=== PATIENT | female | born 1990 | race Caucasian/White ===

== ENCOUNTER 2016-08-26 17:46 | Inpatient (IN) ==
[2016-08-26] MEDS ORDERED: MEPERIDINE 50 MG/1 ML VIAL IV PRN (19:19)
[2016-08-26] MEDS ORDERED: LACTATED RINGERS 500 ML IV PRN (19:19)
[2016-08-26] MEDS ORDERED: LACTATED RINGERS 250 ML IV ONE (19:19)
[2016-08-26] MEDS ORDERED: ONDANSETRON 4 MG/2 ML VIAL IV PRN (19:19)
[2016-08-26] MEDS ORDERED: BUTORPHANOL 2 MG/ML VIAL IV PRN (19:19)
[2016-08-26] MEDS ORDERED: FAMOTIDINE 20 MG/2 ML VIAL IV ONE (19:27)
[2016-08-26] MEDS ORDERED: fentaNYL 2 MCG/ROPIV 0.2% EPID 150 ML EPIDURAL SCH (19:27)
[2016-08-26] MEDS ORDERED: CITRIC ACID/SODIUM CITRATE 30 ML UDCUP PO ONE (19:27)
[2016-08-26] MEDS: LACTATED RINGERS 1,000 ML IV SCH ×3 (19:40→21:19)
[2016-08-26 19:45] LABS: Basophils % 0.1 % (0.0-0.8); Eosinophils # 0.1 10*3/uL (0.0-0.87); Eosinophils % 1.3 % (0.00-10.9); Hematocrit 32.3 VOL% (35.7-47.0); Hemoglobin 10.5 GM/DL (12.0-16.0); Immature Granulocytes % 0.6 %; Immature Granulocytes Absolute 0.05 #; Lymphocytes # 1.6 10*3/uL (1.4-4.0); Lymphocytes % 19.2 % (21.3-54.2); Mean Corpuscular HGB Conc 32.5 GM/DL (32-36); Mean Corpuscular Hemoglobin 27 PG (27-34); Mean Platelet Volume 12.5 FL (9.6-12.0); Monocytes # 0.5 10*3/uL (0.11-0.8); Monocytes % 6.4 % (1.7-12.7); Neutrophils # 6.1 10*3/uL (1.4-7.4); Neutrophils % 72.4 % (38.7-73.9); Platelet Count 210 T/CUMM (130-400); Red Blood Count 3.89 MC/CUMM (3.8-5.5); Red Cell Distribution Width 15.9 % (9.3-17.3); White Blood Count 8.4 T/CUMM (4-12)
[2016-08-26] MEDS ORDERED: ePHEDrine 50 MG/ML AMP ONE (19:47)
[2016-08-26 20:12] LABS: Alanine Aminotransferase 20 U/L (13-56); Albumin 2.4 G/DL (3.4-5.0); Alkaline Phosphatase 217 U/L (45-117); Aspartate Amino Transferase 21 U/L (0-37); Bilirubin,Total < 0.39 MG/DL (0.2-1.0); Blood Urea Nitrogen 9 MG/DL (7-18); Calcium 8.9 MG/DL (8.5-10.1); Glucose 83 MG/DL (74-106); Potassium 4.1 MMOL/L (3.5-5.1); Sodium 136 MMOL/L (136-145); Total Protein 6.2 G/DL (6.4-8.3)
[2016-08-26 20:15] LABS: Apearance,Urine CLEAR (Clear); Bilirubin,Urine Negative (Negative); Blood, Urine Negative (Negative); Glucose,Urine (UA) Negative (Negative); Ketones,Urine Negative (Negative); Nitrite,Urine Negative (Negative); Protein,Urine Negative; RBC,Urine <1 /HPF (0-4); Squamous Epithelial Cell,Urine Occasional /HPF (0-10); Urine Color Straw (Yellow); Urine Specific Gravity 1.005 (1.001-1.035); Urine Urobilinogen < 2.0 EU/DL (0.2-1.0); WBC,Urine <1 /HPF (0-6)
[2016-08-26 20:23] LABS: Barbiturates Screen,Urine Negative (Negative); Benzodiazepines Screen,Urine Negative (Negative); Cannabinoid Screen,Urine Negative (Negative); Opiate Screen,Urine Negative (Negative); Phencyclidine Screen,Urine Negative (Negative)
[2016-08-26] MEDS: AMPICILLIN INJ 2,000 MG in SODIUM CHLORIDE 0.9% 100 ML IV SCH (21:25)
[2016-08-26 21:57] LABS: Apearance,Urine CLEAR (Clear); Bilirubin,Urine Negative (Negative); Blood, Urine Negative (Negative); Glucose,Urine (UA) Negative (Negative); Ketones,Urine Negative (Negative); Nitrite,Urine Negative (Negative); Protein,Urine Negative; RBC,Urine 1 /HPF (0-4); Renal Epithelial Cells,Urine Occasional /HPF (<1); Squamous Epithelial Cell,Urine Occasional /HPF (0-10); Urine Color Colorless (Yellow); Urine Specific Gravity 1.003 (1.001-1.035); Urine Urobilinogen < 2.0 EU/DL (0.2-1.0); WBC,Urine <1 /HPF (0-6)
[2016-08-27] MEDS ORDERED: AMPICILLIN INJ 2,000 MG in SODIUM CHLORIDE 0.9% 100 ML IV SCH
[2016-08-27] MEDS ORDERED: diphenhydrAMINE 50 MG/1 ML VIAL IV ONE (02:55)
[2016-08-27] MEDS ORDERED: OXYTOCIN/LR 20 UNIT/1,000 ML BAG IV SCH (03:00)
[2016-08-27] MEDS: AMPICILLIN INJ 2,000 MG in SODIUM CHLORIDE 0.9% 100 ML IV SCH (03:15)
[2016-08-27 08:50] LABS: Cord Arterial Blood HCO3 20.3 MMOL/L
[2016-08-27 08:51] LABS: Cord Venous Blood HCO3 23.1 MMOL/L; Cord Venous Blood PO2 20.8 MMHG
--- NOTE | 2016-08-27 08:58 | OB/GYN History & Physical ---
History of Present Illness Chief complaint: In with complaints of active labor. History of present illness: Ms. Crystal is a 25 year old female who is a 4 para 3 living 3 PRABHA 2016 for an estimated gestational age of 37 weeks and 6 days. The patient presented to the labor department in active labor. The risk and benefits were thoroughly discussed with the patient and significant other, plan of care was discussed with Dr. Oleary and all parties were in agreement plan. The patient received her care at the [place] [facility] and she received routine care, her course was uneventful. She has had 3 previous vaginal deliveries the largest infant weighing 8 pounds and she reported no complications with any of her pregnancies. labs she is a positive, rubella is immune, RPR is nonreactive, hepatitis B negative, HIV negative, GBS culture positive. Review of systems is negative with exception of active labor. Home Medications Medication Instructions Recorded Confirmed Type No Known Home Medications [No 07/26/16 08/26/16 History Known Home Medications] Allergies Allergy/AdvReac Type Severity Reaction Status Date / Time No Known Allergies Allergy Verified 07/26/16 22:18 12 point system: reviewed and no additional remarkable complaints except as stated Medical,Surgical,& Family Hx - Medical History Medical History: noncontributory Reproductive: History of: Sexually Transmitted Disorders (positive chlamydia 12/26 treated) No history of: Ectopic , Complication - Surgical History Surgical History: noncontributory HEENT Surgeries: Surgical HX of: Tonsilectomy & Adenoidectomy (tonsilectomy) Reproductive Surgeries: Patient denies;: Section - Family History Family History: Reports;: Family Cancer (mother had lung cancer), Family Diabetes (father) - Social History Smoking Status: Current every day smoker Frequency of Alcohol Use: Unknown 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) Marital Status: Single Lives With:: Significant Other Functional capacity: uses cane/walker 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 - Constitutional Vitals: Vital Signs Temp Pulse Resp BP Pulse Ox 08/27/16 07:47 98.6 F 86 20 136/63 100 08/27/16 04:00 97.8 F 93 H 18 138/77 97 08/26/16 23:52 97.5 F L 103 H 19 126/72 99 General appearance: mild distress - Antepartum / Post Antepartum Exam Cervix - Dilatation: 5 cm upon admission Effacement: 60% Station: -2 Rupture: Intact Presentation: Vertex Heart Rate: 130s-140s Abdomen obstetrics: Present: bowel sounds normal Vagina: Present: normal moisture, discharge Uterus exam: Present: enlarged - Respiratory Respiratory exam: Present: clear to auscultation bilaterally - Cardiovascular Cardiovascular exam: Present: regular rate and rhythm - GI/Abdominal GI/Abdominal exam: Present: normal bowel sounds, soft - Extremities Exam Extremities exam: Present: normal inspection - Neurological Exam Neurological exam: Present: alert, oriented X3 - Psychiatric Psychiatric exam: Present: normal affect, normal mood - Skin Skin exam: Present: normal color, warm Assessment and Plan (1) Active labor Status: Acute Assessment and plan: Admit IV fluids IV Pitocin per protocol when indicated Epidural anesthesia if desired Artificial rupture membranes when appropriate Internal monitors if indicated IV antibiotics prophylactically Anticipate Current Visit: Yes Results - Labs CBC & BMP: 08/26/16 19:33 08/26/16 19:33
[2016-08-27] MEDS ORDERED: ACETAMINOPHEN/CODEINE 300-30 MG TABLET PO PRN (09:04)
--- NOTE | 2016-08-27 09:08 | Event Note ---
HPI: Ms. Crystal presented to the labor department at 37 weeks and 6 days in active labor. The risk and benefits were thoroughly discussed the patient significant and plan of care was discussed with Dr. Oleary, all parties were in agreement plan. Stage I: The patient was admitted she received IV fluids and IV Pitocin per protocol. She also received an epidural for pain control. Because she was GBS positive the patient received IV antibiotics prophylactically. She progressed in labor with a CAT 1 tracing. She experienced spontaneous rupture of membranes with meconium fluid noted. The patient had an uneventful course of labor. Stage II: The patient was complete and complained of pressure and desire to push. She pushed approximately 1-2 times after which time the 's head was delivered in the mouth and nose were suctioned out thoroughly on the perineum per Dr. Oleary. The remainder of the infant was then delivered at 830 a viable male infant was noted. Apgars were 8 at 1 minute and 9 at 5 minutes. weight was 6 pounds and 7 ounces. A cord pH was obtained and sent to the lab. Stage III: A spontaneous delivery of a Jenkins placenta with a three-vessel cord noted. The placenta was further examined and appear to be grossly intact with meconium staining. The placenta was sent to pathology for further evaluation due to meconium staining. The vagina cervix was inspected with no tears or lacerations noted. Estimated blood loss was approximately 125 cc at the time of dictation mother and baby are both in stable condition. This is Sera Dickerson CNM dictating a delivery note for Dr. Wilber Oleary.
[2016-08-27] MEDS ORDERED: ACETAMINOPHEN 325 MG TABLET PO PRN (11:07)
[2016-08-27] MEDS ORDERED: RHO(D) IMMUNE GLOBULIN 300 MCG SYRINGE IM ONE (11:07)
[2016-08-27] MEDS ORDERED: DIPH/TET/ACEL PERT BOOSTER VACCINE 0.5 ML VIAL IM ONE (11:07)
[2016-08-27] MEDS ORDERED: MEASLES/MUMPS/RUBELLA VACCINE 0.5 ML VIAL SUBCUT ONE (11:07)
[2016-08-27] MEDS ORDERED: LANOLIN 50% CREAM 0.3 OZ TUBE TOP PRN (11:07)
[2016-08-27] MEDS ORDERED: BENZOCAINE 20%/MENTHOL 0.5% SPRAY 56 GM CAN TOP PRN (11:07)
[2016-08-27] MEDS ORDERED: BISACODYL 10 MG SUPP RECTAL PRN (11:07)
[2016-08-27] MEDS ORDERED: WITCH HAZEL PADS 100/JAR TOP PRN (11:07)
[2016-08-27] MEDS ORDERED: HYDROCORTISONE 2.5% RECTAL CREAM 30 GM TUBE TOP PRN (11:07)
[2016-08-27] MEDS ORDERED: oxyCODONE/ACETAMINOPHEN 5-325 MG TABLET PO PRN (11:07)
[2016-08-27] MEDS: IBUPROFEN 800 MG TABLET PO PRN (11:35)
[2016-08-27] MEDS: oxyCODONE/ACETAMINOPHEN 5-325 MG TABLET PO PRN ×3 (11:37→23:58)
--- NOTE | 2016-08-27 18:48 | Anesthesia Post-Op ---
Anesthesia Post OP - Post Ansesthetic Evaluation Patient seen in post op: Yes Resp: within normal limits CV: within normal limits Mental: within normal limits Temp: within normal limits [id number]-[id number]: within normal limits Nausea and Vomiting: within normal limits Pain: within normal limits
[2016-08-27] MEDS: DOCUSATE SODIUM 100 MG CAPSULE PO SCH (19:59)
[2016-08-28] MEDS: ALUMINUM/MAGNES/SIMETH MAX STR 30 ML UDCUP PO PRN ×2 (03:44→11:04)
[2016-08-28 06:15] LABS: Basophils % 0.2 % (0.0-0.8); Eosinophils # 0.2 10*3/uL (0.0-0.87); Hematocrit 30.5 VOL% (35.7-47.0); Hemoglobin 9.7 GM/DL (12.0-16.0); Immature Granulocytes % 0.8 %; Immature Granulocytes Absolute 0.09 #; Lymphocytes # 2.4 10*3/uL (1.4-4.0); Lymphocytes % 21.5 % (21.3-54.2); Mean Corpuscular HGB Conc 31.8 GM/DL (32-36); Mean Corpuscular Hemoglobin 26 PG (27-34); Mean Corpuscular Volume 82.7 FL (87-102); Mean Platelet Volume 12.2 FL (9.6-12.0); Monocytes # 0.8 10*3/uL (0.11-0.8); Monocytes % 7.6 % (1.7-12.7); Neutrophils # 7.5 10*3/uL (1.4-7.4); Neutrophils % 67.9 % (38.7-73.9); Platelet Count 209 T/CUMM (130-400); Red Blood Count 3.69 MC/CUMM (3.8-5.5); Red Cell Distribution Width 15.9 % (9.3-17.3); White Blood Count 11.1 T/CUMM (4-12)
[2016-08-28] MEDS: IBUPROFEN 800 MG TABLET PO PRN ×2 (06:23→20:40)
[2016-08-28] MEDS: oxyCODONE/ACETAMINOPHEN 5-325 MG TABLET PO PRN ×2 (06:24→20:41)
[2016-08-28] MEDS: DOCUSATE SODIUM 100 MG CAPSULE PO SCH ×2 (08:36→20:16)
--- NOTE | 2016-08-28 09:47 | OB/GYN Progress Note ---
Assessment and Plan (1) Active labor Status: Acute Assessment and plan: Admit IV fluids IV Pitocin per protocol when indicated Epidural anesthesia if desired Artificial rupture membranes when appropriate Internal monitors if indicated IV antibiotics prophylactically Anticipate Current Visit: Yes (2) Vaginal delivery Status: Acute Assessment and plan: Initiate routine orders. 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 Bonding well with . 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 - Constitutional Vitals: Vital Signs Temp Pulse Resp BP BP Pulse Ox 08/28/16 07:20 97.5 F L 84 18 132/84 98 08/28/16 03:44 97.7 F 86 20 144/92 98 08/28/16 02:00 16 08/28/16 00:00 97.9 F 111 H 20 138/89 96 08/27/16 19:25 97.1 F L 107 H 20 140/94 150/95 98 08/27/16 15:42 97.4 F L 97 H 20 146/88 97 08/27/16 11:10 98.8 F 105 H 18 152/82 99 General appearance: no acute distress - Antepartum / Post Post Exam Breast: bilateral: normal Abdomen obstetrics: Present: bowel sounds normal Vagina: Present: normal moisture, discharge (Light lochia rubra) Uterus exam: Present: enlarged (Fundus firm and) Anus/Rectum: Present: normal perianal skin - Head Head exam: Present: normal inspection - Respiratory Respiratory exam: Present: clear to auscultation bilaterally - Cardiovascular Cardiovascular exam: Present: regular rate and rhythm - GI/Abdominal GI/Abdominal exam: Present: normal bowel sounds, soft - Extremities Exam Extremities exam: Present: normal inspection - Back Exam Back exam: Present: normal inspection - Neurological Exam Neurological exam: Present: alert, oriented X3 - Psychiatric Psychiatric exam: Present: normal affect, normal mood - Skin Skin exam: Present: normal color, warm Results - Labs CBC & BMP: 08/28/16 05:34 08/26/16 19:33
--- NOTE | 2016-08-28 13:20 | Pathology Report from [facility] ---
[facility] ACCESSION # : [id number] PATIENT NAME : Karlee Crystal ORDERING DR : FATMATA SEVILLA MD CLINICAL HX: IUP @ 37.6 wks gestation POST-OP DX: Same SPECIMEN INFO: Placenta GROSS DESCRIPTION: Received fresh labeled CRYSTAL CARLA & PLACENTA is a 556 gm placenta measuring 19.5 x 16.2 x 2.8 cm. The membranes are meconium stained pink king and opaque. The umbilical cord is pericentrically inserted, contains three vessels and measures 19.4 cm. The surface is meconium stained blue luther with a through and through rent adjacent the umbilical cord measuring up to 5.5 cm. The maternal surface is beefy red with adherent clotted blood and numerous calcifications noted. Scattered areas of fibrosis are present throughout. No gross abnormalities are noted on sectioning. Sections submitted A- membranes and cord, B- and maternal surfaces. DIAGNOSIS FOR CRYSTAL B CARLA: PLACENTA, MEMBRANES, UMBILICAL CORD: Focal placental infarction with dystrophic calcification, mild intervillous blood. Tri -vessel umbilical cord, eccentrically inserted. Membranes with focal acute and chronic inflammation and attached blood. COLLECTED DATE: 08/27/2016 [facility] REPORT DATE: 08/28/2016 ELECTRONICALLY SIGNED BY: Jimenez Galindo M.D. 08/28/2016 - 10:18:40 [facility]
[2016-08-28] MEDS ORDERED: MAGNESIUM HYDROXIDE SUSP 30 ML UDCUP PO PRN (19:25)
[2016-08-29] MEDS: DOCUSATE SODIUM 100 MG CAPSULE PO SCH (08:48)
--- NOTE | 2016-08-29 11:19 | Discharge Summary ---
Hospital Course - Hospital Course Hospital Course: Postop day #2 Status post vaginal Patient is doing well, no excessive bleeding, no shortness of breath, no chest pain. Abdomen soft and uterus nontender Extremities well with no limits and neurologic grossly intact Assessment and plan Discharge follow-up our office approximately 4 weeks Discharge Plan - Discharge Data Condition at Discharge: Stable Discharge Diet: advance to your usual diet Activity: increase activity as tolerated Hygiene: may shower Weight Bearing at Discharge: weight bear as tolerated Driving: no restrictions Contact your physician if you experience:: fever over 101, Redness or swelling, Shortness of breath, Bleeding - Discharge Medications New Ibuprofen Tab [Motrin Tab] 800 mg PO Q6H PRN #30 tablet PRN Reason: Pain Moderate (4-7) oxyCODONE/ACETAMINOPHEN 5-325 [Percocet 5-325] 1 tablet PO Q6H PRN #7 tablet PRN Reason: Pain Severe (8-10) No Action No Known Home Medications [No Known Home Medications] - Follow Up or Referral - Forms/Instructions Exam - Constitutional Vitals: Period Temp Pulse Resp BP Sys/Lee Pulse Ox Last 24 Hr 97.5 F-98.4 F 91-105 18-20 127-153/77-98 97-98 DS: Provider Date of admission: 08/26/16 19:00 Attending physician on admission: Wilber Oleary MD Consults: 08/26/16 19:19 Consult to Anesthesiology [CONS] Routine Consulting Provider: Reason for Anesthesiology: Epidural Consult Comment: Epidural for pain managment 08/27/16 11:07 Consult to Crude Oil Treater [CONS] Routine Consult Crude Oil Treater: Breast Feeding Discharging clinician: Wilber Oleary MD
[2016-08-29 13:46] VITALS: BP 132/77
== END 2016-08-29 13:35 | disposition home or self-care (01) | DRG 560 ==
LOC: N.LDOUT 17:46 → N.LD 17:47 → N.OB 08-27 11:04
PROVIDERS: ADMIT Obstetrics & Gynecology; ATTEND Obstetrics & Gynecology

== ENCOUNTER 2018-08-02 06:05 | Inpatient (IN) ==
[2018-08-02] MEDS ORDERED: ONDANSETRON 4 MG/2 ML VIAL IV PRN (06:11)
[2018-08-02] MEDS ORDERED: MEPERIDINE 50 MG/1 ML VIAL IV PRN (06:13)
[2018-08-02 06:29] LABS: Basophils % 0.4 % (0.0-0.8); Eosinophils # 0.2 10*3/uL (0.0-0.87); Eosinophils % 2.6 % (0.00-10.9); Hematocrit 34.8 VOL% (35.7-47.0); Hemoglobin 11.2 GM/DL (12.0-16.0); Immature Granulocytes % 0.7 %; Immature Granulocytes Absolute 0.06 #; Lymphocytes # 1.8 10*3/uL (1.4-4.0); Lymphocytes % 21.8 % (21.3-54.2); Mean Corpuscular HGB Conc 32.2 GM/DL (32-36); Mean Corpuscular Volume 88.3 FL (87-102); Mean Platelet Volume 12.1 FL (9.6-12.0); Monocytes % 7.5 % (1.7-12.7); Platelet Count 185 T/CUMM (130-400); Red Blood Count 3.94 MC/CUMM (3.8-5.5); Red Cell Distribution Width 14.3 % (9.3-17.3); White Blood Count 8.3 T/CUMM (4-12)
[2018-08-02] MEDS ORDERED: AMPICILLIN INJ 2,000 MG in SODIUM CHLORIDE 0.9% 100 ML IV SCH (06:30)
[2018-08-02] MEDS ORDERED: LACTATED RINGERS 1,000 ML IV SCH ×2 (06:30→09:00)
[2018-08-02] MEDS ORDERED: OXYTOCIN/LR 20 UNIT/1,000 ML BAG IV SCH (06:30)
[2018-08-02 06:55] LABS: Albumin 2.8 G/DL (3.4-5.0); Bilirubin,Total 0.5 MG/DL (0.2-1.0); Calcium 8.8 MG/DL (8.5-10.1); Osmolality,Calculated 273.7 MOS/KG (273-304); Total Protein 7.1 G/DL (6.4-8.3)
[2018-08-02] MEDS ORDERED: CITRIC ACID/SODIUM CITRATE 30 ML UDCUP PO ONE (08:55)
[2018-08-02] MEDS ORDERED: ePHEDrine 50 MG/ML AMP IV PRN (08:55)
[2018-08-02] MEDS ORDERED: FAMOTIDINE 20 MG/2 ML VIAL IV ONE (08:55)
[2018-08-02] MEDS ORDERED: LACTATED RINGERS 1,000 ML IV ONE (08:55)
[2018-08-02] MEDS ORDERED: diphenhydrAMINE 50 MG/1 ML VIAL IV PRN ×2 (08:56)
[2018-08-02] MEDS ORDERED: PROMETHAZINE 25 MG/1 ML VIAL IM ONE (08:56)
[2018-08-02] MEDS ORDERED: NALOXONE 0.4 MG/ML VIAL IV PRN (08:56)
[2018-08-02] MEDS ORDERED: hydrOXYzine HCL 25 MG/1 ML VIAL IM PRN (08:56)
[2018-08-02] MEDS ORDERED: fentaNYL 2 MCG/ROPIV 0.2% EPID 100 ML EPIDURAL SCH (09:00)
[2018-08-02] MEDS ORDERED: AMPICILLIN INJ 1,000 MG in SODIUM CHLORIDE 0.9% 100 ML IV SCH (11:30)
[2018-08-02] MEDS ORDERED: miSOPROStol 200 MCG TABLET ONE (12:07)
[2018-08-02] MEDS ORDERED: CARBOPROST TROMETHAMINE 250 MCG/ML AMP IM ONE (12:08)
[2018-08-02] MEDS ORDERED: METHYLERGONOVINE 0.2 MG/1 ML AMP ONE (12:08)
[2018-08-02 12:18] LABS: Apearance,Urine Clear (Clear); Glucose,Urine (UA) Negative (Negative); Ketones,Urine Negative (Negative); Protein,Urine Negative; Urine Color Straw (Yellow)
[2018-08-02 12:19] LABS: Bilirubin,Urine Negative (Negative); Blood, Urine Negative (Negative); Nitrite,Urine Negative (Negative); RBC,Urine Rare /HPF (0-4); Squamous Epithelial Cell,Urine Few /HPF (0-10); Urine Urobilinogen < 2.0 EU/DL (0.2-1.0); WBC,Urine Rare /HPF (0-6)
[2018-08-02 12:57] LABS: Cord Venous Blood HCO3 23.8 MMOL/L; Cord Venous Blood PCO2 37.5 MMHG; Cord Venous Blood PO2 32.3
[2018-08-02] MEDS ORDERED: IBUPROFEN 800 MG TABLET PO ONE (14:12)
[2018-08-02] MEDS ORDERED: BISACODYL 10 MG SUPP RECTAL PRN (16:15)
[2018-08-02] MEDS ORDERED: BENZOCAINE 20%/MENTHOL 0.5% SPRAY 56 GM CAN TOP PRN (16:15)
[2018-08-02] MEDS ORDERED: oxyCODONE/ACETAMINOPHEN 5-325 MG TABLET PO PRN (16:15)
[2018-08-02] MEDS ORDERED: RHO(D) IMMUNE GLOBULIN 300 MCG SYRINGE IM ONE (16:15)
[2018-08-02] MEDS ORDERED: DIPH/TET/ACEL PERT BOOSTER VACCINE 0.5 ML VIAL IM ONE (16:15)
[2018-08-02] MEDS ORDERED: WITCH HAZEL PADS 100/JAR TOP PRN (16:15)
[2018-08-02] MEDS ORDERED: ACETAMINOPHEN 325 MG TABLET PO PRN (16:15)
[2018-08-02] MEDS ORDERED: HYDROCORTISONE 2.5% RECTAL CREAM 30 GM TUBE TOP PRN (16:15)
[2018-08-02] MEDS ORDERED: MEASLES/MUMPS/RUBELLA VACCINE 0.5 ML VIAL SUBCUT ONE (16:15)
[2018-08-02] MEDS ORDERED: LANOLIN 50% CREAM 0.3 OZ TUBE TOP PRN (16:15)
[2018-08-02] MEDS: oxyCODONE/ACETAMINOPHEN 5-325 MG TABLET PO PRN ×2 (18:03→23:36)
[2018-08-02] MEDS: DOCUSATE SODIUM 100 MG CAPSULE PO SCH (21:12)
[2018-08-02] MEDS: IBUPROFEN 800 MG TABLET PO PRN (23:36)
[2018-08-03 05:44] LABS: Basophils % 0.4 % (0.0-0.8); Eosinophils # 0.2 10*3/uL (0.0-0.87); Eosinophils % 1.6 % (0.00-10.9); Hemoglobin 10.5 GM/DL (12.0-16.0); Immature Granulocytes % 0.6 %; Immature Granulocytes Absolute 0.07 #; Lymphocytes # 2.2 10*3/uL (1.4-4.0); Lymphocytes % 20.4 % (21.3-54.2); Mean Corpuscular HGB Conc 30.9 GM/DL (32-36); Mean Corpuscular Volume 89.9 FL (87-102); Mean Platelet Volume 12.4 FL (9.6-12.0); Monocytes % 7.4 % (1.7-12.7); Neutrophils % 69.6 % (38.7-73.9); Platelet Count 156 T/CUMM (130-400); Red Blood Count 3.78 MC/CUMM (3.8-5.5); Red Cell Distribution Width 14.3 % (9.3-17.3); White Blood Count 10.9 T/CUMM (4-12)
[2018-08-03] MEDS: DOCUSATE SODIUM 100 MG CAPSULE PO SCH ×2 (08:31→20:53)
[2018-08-03] MEDS: oxyCODONE/ACETAMINOPHEN 5-325 MG TABLET PO PRN (18:33)
[2018-08-03] MEDS: IBUPROFEN 800 MG TABLET PO PRN (18:33)
[2018-08-04 07:27] VITALS: BP 109/59
[2018-08-04] MEDS: IBUPROFEN 800 MG TABLET PO PRN (08:35)
[2018-08-04] MEDS: oxyCODONE/ACETAMINOPHEN 5-325 MG TABLET PO PRN (08:35)
[2018-08-04] MEDS: DOCUSATE SODIUM 100 MG CAPSULE PO SCH (14:14)
== END 2018-08-04 11:05 | disposition home or self-care (01) | DRG 560 ==
LOC: N.LDOUT 06:05 → N.LD 06:06 → N.OB 16:15
PROVIDERS: ADMIT Obstetrics & Gynecology; ATTEND Obstetrics & Gynecology